=== PATIENT | male | born 1990 | race Caucasian/White ===

== ENCOUNTER 2020-08-27 11:33 | Emergency (ER) | payer BC, SELFPAY ==
[2020-08-27] MEDS ORDERED: LIDOCAINE 1% MPF 5 ML VIAL ONE (12:14)
[2020-08-27] MEDS ORDERED: HYDROCODONE/APAP 7.5/325 MG TAB ONE (12:14)
[2020-08-27] MEDS ORDERED: TETANUS & DIPHTHERIA TOX,ADULT 0.5 ML VIAL ONE (12:14)
[2020-08-27] MEDS ORDERED: DOXYCYCLINE 100 MG CAP PO ONE (12:14)
--- NOTE | 2020-08-27 12:40 | EDPHYS ---
Physician Documentation [facility] Name: Jasvir Galvez Age: 30 yrs Sex: Male : 1990 Arrival Date: 08/27/2020 Time: 11:34 Bed 8 Private MD: ED Physician Melquiades Bernard HPI: 08/27 12:38 This 30 yrs old Male presents to ER via Ambulatory with complaints of kb Puncture Wound To Hand - madonna. 12:38 The patient or guardian reports a puncture wound, catfish madonna. The complaints affect kb the palm of right hand. Context: [place] catfish madonna punctured palm of right hand. Onset: The symptoms/episode began/occurred just prior to arrival. Modifying factors: The symptoms are alleviated by nothing, the symptoms are aggravated by nothing. Associated signs and symptoms: The patient has no apparent associated signs or symptoms. Severity of symptoms: At their worst the symptoms were moderate, in the emergency department the symptoms are unchanged. The patient has not experienced similar symptoms in the past. The patient has not recently seen a physician. Historical: - Allergies: 11:42 No Known Allergies; ll1 - PMHx: 11:42 None; ll1 - PSHx: 11:42 None; ll1 - Immunization history:: Last tetanus immunization: unknown, Flu vaccine is not up to date. - Social history:: Smoking status: Patient denies any tobacco usage or history of. ROS: 12:36 Constitutional: Negative for fever, chills, and weight loss, MS/Extremity: Negative for kb injury and deformity, Neuro: Negative for headache, weakness, numbness, tingling, and seizure. 12:36 Skin: Positive for puncture, of the palm of right hand, with catfish madonna in place. Exam: 12:36 Constitutional: This is a well developed, well nourished patient who is awake, alert, kb and in no acute distress. Head/Face: Normocephalic, atraumatic. ENT: Moist Mucous membranes Respiratory: Respirations even and unlabored. No increased work of breathing, no retractions or nasal flaring. MS/ Extremity: Pulses equal, no cyanosis. Neurovascular intact. Full, normal range of motion. Neuro: Awake and alert, GCS 15, oriented to person, place, time, and situation. Moves all extremities. Normal gait. Psych: Awake, alert, with orientation to person, place and time. Behavior, mood, and affect are within normal limits. 12:36 Skin: injury, puncture(s), that are deep, of the palm of right hand, with foreign body in place. Vital Signs: 11:39 BP 127 / 41; Pulse 80; Resp 18; Temp 98.5; Pulse Ox 100% ; Weight 99.79 kg; Height 6 ll1 ft. 1 in. (185.42 cm); Pain 9/10; 11:46 BP 160 / 125; Pulse 75; Resp 18; Pulse Ox 100% on R/A; tr6 11:39 Body Mass Index 29.03 (99.79 kg, 185.42 cm) ll1 Procedures: 12:37 Foreign Body Removal: catfish madonna, from the palm of right hand, by incising to remove, kb using lidocaine 1% without epinephrine to anesthesize the area, Dressinx4s were used to dress the wound, The patient tolerated the removal well. MDM: 11:40 Patient medically screened. kb 12:35 Data reviewed: vital signs, nurses notes. Data interpreted: Pulse oximetry: on room air kb is 100 %. Interpretation: normal. Counseling: I had a detailed discussion with the patient and/or guardian regarding: the historical points, exam findings, and any diagnostic results supporting the discharge/admit diagnosis, radiology results, the need for outpatient follow up, a family practitioner, to return to the emergency department if symptoms worsen or persist or if there are any questions or concerns that arise at home. 08/27 11:45 Order name: Hand Right 3 View XRAY; Complete Time: 12:54 kb Administered Medications: 11:57 Drug: Tetanus-Diphtheria Toxoid Adult 0.5 ml {Cosmetics Presser: [employer]. Exp: tr6 05/05/2022. Lot #: [id number]. } Route: IM; Site: right deltoid; 11:57 Drug: [place] (HYDROcodone-acetaminophen) (7.5 mg-325 mg) 1 tabs Route: PO; tr6 11:57 Drug: Lidocaine (1 %) 1 vials Volume: 5 ml; Route: Infiltration; tr6 12:02 Drug: Doxycycline 100 mg Route: PO; tr6 12:38 Drug: Ibuprofen 800 mg Route: PO; tr6 Disposition: 08/27/20 12:40 Discharged to Home. Impression: Puncture wound with foreign body of right hand. - Condition is Stable. - Discharge Instructions: Foreign Body. - Prescriptions for Ibuprofen 800 mg Oral Tablet - take 1 tablet by ORAL route every 8 hours As needed take with food; 30 tablet. Doxycycline Hyclate 100 mg Oral Tablet - take 1 tablet by ORAL route every 12 hours; 20 tablet. - Medication Reconciliation Form, Thank You Letter, Antibiotic Education, Prescription Opioid Use form. - Follow up: Emergency Department; When: As needed; Reason: Worsening of condition. Follow up: Private Physician; When: 2 - 3 days; Reason: Recheck today's complaints, Continuance of care, Re-evaluation by your physician. Addendum: 08/30/2020 11:32 Co-signature as Attending Physician, Melquiades Bernard MD I agree with the assessment and c edwards plan of care. Signatures: Dispatcher [employer] EDCorrie Rubio, ACOUSTICAL LOGGING ENGINEER-C ACOUSTICAL LOGGING ENGINEER-Melquiades Cota MD MD cha Lewis, Lynsay RN RN ll1 Chanel Medrano RN RN tr6 Corrections: (The following items were deleted from the chart) 08/27 13:25 12:40 08/27/2020 12:40 Discharged to Home. Impression: Puncture wound with foreign body tr6 of right hand. Condition is Stable. Forms are Medication Reconciliation Form, Thank You Letter, Antibiotic Education, Prescription Opioid Use. Follow up: Emergency Department; When: As needed; Reason: Worsening of condition. Follow up: Private Physician; When: 2 - 3 days; Reason: Recheck today's complaints, Continuance of care, Re-evaluation by your physician. kb
--- NOTE | 2020-08-27 12:40 | ER ---
Nurse's Notes 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 Tried to ll1 pull it out himself and felt a rip. No active bleeding at this time. Coronavirus screen: Client denies travel out of the [place] in the last 14 days. At this time, the client does not indicate any symptoms associated with coronavirus-19. Ebola Screen: Patient denies travel to an Ebola-affected area in the 21 days before illness onset. Initial Sepsis Screen: Does the patient meet any 2 criteria? No. Patient's initial sepsis screen is negative. Does the patient have a suspected source of infection? Yes: Skin breakdown/wound. Risk Assessment: Do you want to hurt yourself or someone else? Patient reports no desire to harm self or others. Onset of symptoms was August 27, 2020. 11:39 Method Of Arrival: Ambulatory ll1 11:39 Acuity: ISAI 3 ll1 Historical: - Allergies: 11:42 No Known Allergies; ll1 - PMHx: 11:42 None; ll1 - PSHx: 11:42 None; ll1 - Immunization history:: Last tetanus immunization: unknown, Flu vaccine is not up to date. - Social history:: Smoking status: Patient denies any tobacco usage or history of. Screenin:47 Abuse screen: Denies threats or abuse. Denies injuries from another. Nutritional tr6 screening: No deficits noted. Tuberculosis screening: No symptoms or risk factors identified. Fall Risk None identified. Assessment: 11:44 General: Appears uncomfortable, Behavior is calm, cooperative, appropriate for age. tr6 Pain: Complains of pain in right hand. Neuro: No deficits noted. Cardiovascular: No deficits noted. Respiratory: No deficits noted. GI: No deficits noted. : No deficits noted. EENT: No deficits noted. Derm: Wound noted right palm Wound is pt was fishing and has fish madonna stuck in right palm. Musculoskeletal: No deficits noted. 12:14 Reassessment: TITA Novak at bedside to remove madonna from pts hand. tr6 Vital Signs: 11:39 BP 127 / 41; Pulse 80; Resp 18; Temp 98.5; Pulse Ox 100% ; Weight 99.79 kg; Height 6 ll1 ft. 1 in. (185.42 cm); Pain 9/10; 11:46 BP 160 / 125; Pulse 75; Resp 18; Pulse Ox 100% on R/A; tr6 11:39 Body Mass Index 29.03 (99.79 kg, 185.42 cm) ll1 ED Course: 11:34 Patient arrived in ED. as 11:35 Corrie Novak FNP-C [facility]. kb 11:35 Melquiades Bernard MD is Attending Physician. kb 11:40 Triage completed. ll1 11:40 Chanel Medrano, VIBHA is Primary Nurse. tr6 11:40 Arm band placed on Patient placed in an exam room, on a stretcher. ll1 11:47 Patient has correct armband on for positive identification. Bed in low position. Call tr6 light in reach. Side rails up X 1. 11:47 No provider procedures requiring assistance completed. tr6 12:10 Hand Right 3 View XRAY In Process Unspecified. EDMS Administered Medications: 11:57 Drug: Tetanus-Diphtheria Toxoid Adult 0.5 ml {Technical Agronomist: [employer]. Exp: tr6 05/05/2022. Lot #: [id number]. } Route: IM; Site: right deltoid; 11:57 Drug: [place] (HYDROcodone-acetaminophen) (7.5 mg-325 mg) 1 tabs Route: PO; tr6 11:57 Drug: Lidocaine (1 %) 1 vials Volume: 5 ml; Route: Infiltration; tr6 12:02 Drug: Doxycycline 100 mg Route: PO; tr6 12:38 Drug: Ibuprofen 800 mg Route: PO; tr6 Outcome: 12:40 Discharge ordered by . kb 13:25 Patient left the ED. 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 ll1 ll1
--- NOTE | 2020-08-27 12:45 | RAD REPORT ---
EXAM DESCRIPTION: RAD - Hand Right 3 View - 08/27/2020 12:12 pm CLINICAL HISTORY: Right hand pain status post injury FINDINGS: No acute fracture or dislocation is seen. A 21 millimeter linear foreign body palmar aspect of the hand
[2020-08-27] MEDS ORDERED: IBUPROFEN 400 MG TAB ONE (12:57)
[2020-08-27 13:30] VITALS: TEMP 98.5; O2SAT 100
[2020-08-27 13:32] VITALS: BP 160/125
== END 2020-08-27 13:25 | disposition home or self-care (01) ==
LOC: ER 11:33
PROC: 0JCJ0ZZ Extirpation of Matter from Right Hand Subcutaneous Tissue and Fascia, Open Approach (ICD-10-PCS; principal; 2020-08-27)
DX: S61.441A Puncture wound with foreign body of right hand, initial encounter (principal); W45.8XXA Other foreign body or object entering through skin, initial encounter; Y92.832 Beach as the place of occurrence of the external cause; Z23 Encounter for immunization
CPT/HCPCS: 90471; 90714; 99283